=== PATIENT | male | born 1940 | race American Indian/Alaskan Native ===

== ENCOUNTER 2016-06-28 09:37 | Outpatient (CLI) | payer MEDICARE ==
--- NOTE | 2016-06-28 10:42 | XRay Report ---
RIGHT HIP, 2 views: History: Right hip pain. No comparison. No evidence for fracture or dislocation. No bone lesion. 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 IMPRESSION: Chronic findings as described above. No evidence for acute injury.
== END 2016-06-28 09:38 | disposition home or self-care (01) ==
LOC: XRAY 09:37
PROVIDERS: ATTEND Internal Medicine
DX: M25.551 Pain in right hip (principal); M25.851 Other specified joint disorders, right hip; W19.XXXA Unspecified fall, initial encounter; Y93.89 Activity, other specified; Y92.89 Other specified places as the place of occurrence of the external cause; Y99.8 Other external cause status

== ENCOUNTER 2017-08-15 11:07 | Outpatient (CLI) | payer MEDICARE ==
--- NOTE | 2017-08-15 11:53 | XRay Report ---
CHEST 2 VIEWS INDICATION: Cannabis use. COMPARISON: 08/08/2010 FINDINGS: PA and lateral chest radiographs demonstrate stable cardiomediastinal silhouette with slight left ventricular prominence. Clear, slightly hyperexpanded lungs. No pleural effusions or CHF. Demineralized bones with mild thoracic spine degenerative changes. Moderate to severe lower cervical spondylosis. CONCLUSION: No acute chest process or significant interval change, as described. Thank you for the opportunity to participate in this patient's care.
== END 2017-08-15 11:08 | disposition home or self-care (01) ==
LOC: XRAY 11:07
PROVIDERS: ATTEND Internal Medicine
DX: M47.894 Other spondylosis, thoracic region (principal); F12.90 Cannabis use, unspecified, uncomplicated; M47.892 Other spondylosis, cervical region; R41.82 Altered mental status, unspecified; I10 Essential (primary) hypertension; E78.00 Pure hypercholesterolemia, unspecified; K21.9 Gastro-esophageal reflux disease without esophagitis; M19.90 Unspecified osteoarthritis, unspecified site; Z82.49 Family history of ischemic heart disease and other diseases of the circulatory system; Z83.3 Family history of diabetes mellitus
CPT/HCPCS: 71046

== ENCOUNTER 2018-03-07 12:16 | Outpatient (CLI) | payer MEDICARE ==
--- NOTE | 2018-03-07 22:00 | XRay Report ---
FINAL REPORT EXAM: XR SPINE LUMBOSACRAL 4+V HISTORY: LOWER BACK PAIN TECHNIQUE: AP, lateral, bilateral oblique, and coned-down views of the lumbar spine PRIORS: None. FINDINGS: The vertebral body heights and disc spaces are well maintained. There is a marked dextroscoliosis at L1. No evidence for spondylolisthesis is seen. Pedicles are intact bilaterally at all levels. The paraspinal soft tissues demonstrate moderate calcification of the aorta. IMPRESSION: Dextroscoliosis at L1. No acute bony abnormality.
--- NOTE | 2018-03-07 22:03 | XRay Report ---
FINAL REPORT EXAM: XR HIP 2-3V LT HISTORY: PAIN IN LEFT HIP TECHNIQUE: AP view of the pelvis and 2 coned-down views of the left hip. PRIORS: None. FINDINGS: No evidence for acute fracture or dislocation is seen. Moderate narrowing of both hip joints is seen related to osteoarthritis. The soft tissues demonstrate vascular calcifications. B there also coils p resent related to hernia repair mesh. Ivanna mineralization is normal. IMPRESSION: No acute soft tissue or bony abnormality noted in the left hip.
== END 2018-03-07 12:17 | disposition home or self-care (01) ==
LOC: XRAY 12:16
PROVIDERS: ATTEND Internal Medicine
DX: M41.86 Other forms of scoliosis, lumbar region (principal); M25.552 Pain in left hip; I10 Essential (primary) hypertension; E78.00 Pure hypercholesterolemia, unspecified; M19.90 Unspecified osteoarthritis, unspecified site; K21.9 Gastro-esophageal reflux disease without esophagitis
CPT/HCPCS: 72110

== ENCOUNTER 2018-03-27 07:26 | Outpatient (CLI) | payer MEDICARE ==
--- NOTE | 2018-03-27 11:18 | Cat Scan Report ---
FINAL REPORT EXAM: CT LUMBAR SPINE WO CON HISTORY: LOW BACK PAIN TECHNIQUE: CT of the Lumbar Spine without IV contrast. Coronal and sagittal reformatted images were provided. PRIORS: None currently available. FINDINGS: There is no fracture. There is no subluxation. Dextroscoliosis of the thoracolumbar spine. Levoscoliosis of the lower lumbar spine. L5-S1: Symmetrical disc osteophyte complex. Bilateral uncovertebral and facet arthropathy. Severe giorgi ateral foraminal narrowing. Moderate to severe spinal canal narrowing. L4-L5: Left asymmetrical disc osteophyte complex. Bilateral facet arthropathy and ligamentum flavum h ypertrophy. Moderate spinal canal narrowing. Moderate to severe left foraminal narrowing. Moderate ri ght foraminal narrowing. L3-L4: Symmetrical disc osteophyte complex. Bilateral facet arthropathy and ligamentum flavum hypertr ophy. Severe spinal canal and left foraminal narrowing. Moderate to severe right foraminal narrowing. L2-L3: Left asymmetrical disc osteophyte complex. Bilateral facet arthropathy and ligamentum flavum h ypertrophy. Moderate to severe spinal canal narrowing. Moderate bilateral foraminal narrowing. L1-L2: Symmetrical bulge. Bilateral facet arthropathy. Mild spinal canal and bilateral foraminal narr owing. T10-L1: Symmetrical bulge. Bilateral facet arthropathy. Minimal to mild spinal canal narrowing. Minim al to mild bilateral foraminal narrowing. Prevertebral soft tissue structures are unremarkable. Hypertrophic osseous changes at the posterior right iliac bone. SI joints are unremarkable. Moderate atherosclerotic disease in the aorta. No aneurysm. Moderate to severe disease in the right a nd left common iliacs. IMPRESSION: Scoliosis. Degenerative discs with the worst levels at L2-S1.
== END 2018-03-27 07:27 | disposition home or self-care (01) ==
LOC: CT 07:26
PROVIDERS: ATTEND Orthopaedic Surgery
DX: M41.85 Other forms of scoliosis, thoracolumbar region (principal); M51.37 Other intervertebral disc degeneration, lumbosacral region; I70.0 Atherosclerosis of aorta; M48.061 Spinal stenosis, lumbar region without neurogenic claudication; M25.78 Osteophyte, vertebrae; I10 Essential (primary) hypertension; E78.00 Pure hypercholesterolemia, unspecified; K21.9 Gastro-esophageal reflux disease without esophagitis; M19.90 Unspecified osteoarthritis, unspecified site
CPT/HCPCS: 72131

== ENCOUNTER 2018-07-26 09:15 | Outpatient (CLI) | payer MEDICARE ==
[2018-07-26 10:17] LABS: Calcium 9.7 mg/dL (8.4-10.2); Chol/HDL Ratio 3.04 %
== END 2018-07-26 09:16 | disposition home or self-care (01) ==
LOC: LAB 09:15
PROVIDERS: ATTEND Internal Medicine
DX: E78.5 Hyperlipidemia, unspecified (principal); E11.22 Type 2 diabetes mellitus with diabetic chronic kidney disease; I12.9 Hypertensive chronic kidney disease with stage 1 through stage 4 chronic kidney disease, or unspecified chronic kidney disease; N18.9 Chronic kidney disease, unspecified; E78.00 Pure hypercholesterolemia, unspecified; K21.9 Gastro-esophageal reflux disease without esophagitis
CPT/HCPCS: 36415; 80048; 80061; 83036

== ENCOUNTER 2018-12-21 10:21 | Outpatient (CLI) | payer MEDICARE ==
[2018-12-21 11:37] LABS: Chol/HDL Ratio 3.48 %
[2018-12-24 13:46] LABS: Vitamin D, 25-OH, D2 <4 ng/mL
== END 2018-12-21 10:22 | disposition home or self-care (01) ==
LOC: LAB 10:21
PROVIDERS: ATTEND Internal Medicine
DX: Z13.21 Encounter for screening for nutritional disorder (principal); E78.5 Hyperlipidemia, unspecified; E11.9 Type 2 diabetes mellitus without complications
CPT/HCPCS: 36415; 80061; 82306; 83036

== ENCOUNTER 2019-03-26 11:20 | Outpatient (CLI) | payer MEDICARE ==
[2019-03-26 13:00] LABS: Basophils % (Auto) 0.5 % (0.0-1.8); Eosinophils # (Auto) 0.1 K/mm3 (0.0-0.4); Eosinophils % (Auto) 1.8 % (0.0-4.3); Hematocrit 37.5 % (35.5-45.6); Hemoglobin 12.5 gm/dl (11.8-15.2); Lymphocytes # (Auto) 2.5 K/mm3 (1.2-5.4); Lymphocytes % (Auto) 45.6 % (13.4-35.0); Mean Corpuscular HGB Conc 33 % (32-34); Mean Corpuscular Volume 99 fl (84-94); Monocytes # (Auto) 0.3 K/mm3 (0.0-0.8); Monocytes % (Auto) 4.9 % (0.0-7.3); Platelet Count 264 K/mm3 (140-440); Red Blood Count 3.78 M/mm3 (3.65-5.03); Red Cell Distribution Width 14.7 % (13.2-15.2)
[2019-03-26 13:11] LABS: Alanine Aminotransferase 8 units/L (7-56); Albumin 4.2 g/dL (3.9-5); BUN/Creatinine Ratio 13; Blood Urea Nitrogen 17 mg/dL (9-20); Calcium 9.5 mg/dL (8.4-10.2); HDL Cholesterol 42 mg/dL (40-59); Hemolysis Index 16; LDL Cholesterol,Direct 89 mg/dL (50-130)
== END 2019-03-26 11:21 | disposition home or self-care (01) ==
LOC: LAB 11:20
PROVIDERS: ATTEND Internal Medicine
DX: N18.9 Chronic kidney disease, unspecified (principal); E78.5 Hyperlipidemia, unspecified; E11.9 Type 2 diabetes mellitus without complications; Z13.29 Encounter for screening for other suspected endocrine disorder; Z13.21 Encounter for screening for nutritional disorder
CPT/HCPCS: 36415; 80053; 80061; 82306; 82607; 83036; 84443; 85025